=== PATIENT | female | born 1970 | race Caucasian/White ===

== ENCOUNTER 2022-06-08 11:01 | Outpatient (CLI) | payer OTHER, SELFPAY ==
[2022-06-08 14:03] LABS: Cholesterol* 147 mg/dL (90-199)
[2022-06-08 14:04] LABS: HDL Cholesterol* 57 mg/dL (>=50); LDL Cholesterol Calculated 77 mg/dL (<100); Triglycerides* 64 mg/dL (40-149)
== END 2022-06-08 11:02 | disposition home or self-care (01) ==
LOC: FBOREF 11:01
PROVIDERS: PCP Family Medicine; Visit Provider Family Medicine
DX: Z01.419 Encounter for gynecological examination (general) (routine) without abnormal findings (principal); E78.5 Hyperlipidemia, unspecified; E11.9 Type 2 diabetes mellitus without complications
CPT/HCPCS: 80061

== ENCOUNTER 2023-04-04 09:19 | Outpatient (CLI) | payer OTHER, SELFPAY ==
--- NOTE | 2023-04-04 10:31 | W.ANESCHARGE ---
Anesthesia Charges Start Date/Time Anesthesia Start Date: 04/04/23 Anesthesia Start Time: 10:05 Stop Date/Time Anesthesia Stop Date: 04/04/23 Anesthesia Stop Time: 10:30
== END 2023-04-04 09:20 | disposition home or self-care (01) ==
LOC: OP CLINIC 09:20
PROVIDERS: PCP Family Medicine; Visit Provider Internal Medicine
DX: R19.5 Other fecal abnormalities (principal); K57.30 Diverticulosis of large intestine without perforation or abscess without bleeding
CPT/HCPCS: 00812; 45378; J2704

== ENCOUNTER 2023-04-11 09:45 | Outpatient (CLI) | payer OTHER, SELFPAY | END 2023-04-11 09:46 | disposition home or self-care (01) | PROVIDERS: PCP Family Medicine; Visit Provider Family Medicine | DX: E78.2 Mixed hyperlipidemia (principal); E11.9 Type 2 diabetes mellitus without complications | CPT/HCPCS: 80048; 80061; 84460 ==

== ENCOUNTER 2024-09-28 11:00 | Outpatient (CLI) | payer OTHER, SELFPAY ==
[2024-09-28 14:37] LABS: Creatinine Urine 42.8 mg/dL
[2024-09-28 14:43] LABS: Microalbumin Creatinine Ratio 20 mg/g (0-30); Microalbumin Urine 1 mg/dL
== END 2024-09-28 11:01 | disposition home or self-care (01) ==
PROVIDERS: PCP Family Medicine; Visit Provider Family Medicine
DX: E11.9 Type 2 diabetes mellitus without complications (principal); E78.2 Mixed hyperlipidemia; Z79.4 Long term (current) use of insulin
CPT/HCPCS: 80048; 80061; 82043; 82570; 84460; 84550

== ENCOUNTER 2025-02-21 09:59 | Outpatient (CLI) | payer OTHER, SELFPAY | END 2025-02-21 10:00 | disposition home or self-care (01) | LOC: NFLDREF 02-26 07:22 | PROVIDERS: PCP Family Medicine; Referring Provider Family Medicine; Visit Provider Family Medicine | DX: R30.0 Dysuria (principal); N39.0 Urinary tract infection, site not specified; E11.9 Type 2 diabetes mellitus without complications; Z79.4 Long term (current) use of insulin | CPT/HCPCS: 87086; 87186 ==